=== PATIENT | male | born 1980 | race Caucasian/White ===

== ENCOUNTER 2019-11-16 06:06 | Day surgery (SDC) | payer BC ==
[2019-11-15 12:05] VITALS: BMI 50.8
--- NOTE | 2019-11-16 11:04 | OP ---
DATE OF PROCEDURE: 11/16/2019 PROCEDURES PERFORMED: Esophagogastroduodenoscopy with biopsy and colonoscopy with biopsy and snare polypectomy. PREOPERATIVE DIAGNOSES: Blood in the stool, and intermittent diarrhea chronic, and gastroesophageal reflux disease. DESCRIPTION OF PROCEDURE: Informed consent was obtained from the patient. He was sedated with total intravenous anesthesia. The bite block was placed, and the endoscope was advanced easily to the second portion of the duodenum and retroflexion was performed in the stomach. The esophagus was normal. The GE junction was normal. The stomach was normal including retroflexed views. The pylorus and first and second portions of the duodenum were normal. Biopsies were obtained from the second portion of the duodenum to rule out celiac disease. The patient was turned around. Rectal exam was performed and was normal. The colonoscope was advanced to the terminal ileum without difficulty. The preparation quality was excellent. The ileocecal valve and appendiceal orifice were clearly identified. I removed a 6 mm polyp from the hepatic flexure by snare cautery polypectomy. I removed a 6 mm polyp from the transverse colon by snare cautery polypectomy. I removed a 5 mm polyp from the descending colon by cold snare polypectomy. I removed a 10 mm pedunculated polyp from the sigmoid colon by snare cautery polypectomy. There was mild diverticulosis of the sigmoid and descending colon. The remainder of the colonic mucosa was normal including retroflexed views in the rectum. Random biopsies were obtained from the colon to rule out microscopic colitis. IMPRESSION: 1. Normal esophagogastroduodenoscopy. Duodenal biopsies taken to rule out celiac disease. 2. Hepatic flexure, 6 mm polyp. 3. Transverse colon, 6 mm polyp. 4. Descending colon, 5 mm polyp. 5. Sigmoid colon, 10 mm pedunculated polyp removed by hot snare. 6. Mild diverticulosis of the sigmoid and descending colon. 7. Otherwise normal colonoscopy. Random colon biopsies were taken to rule out microscopic colitis. RECOMMENDATIONS: 1. Await histopathology. 2. Follow up in GI clinic. 3. Repeat colonoscopy in 3 years if three or more polyps are adenomas or if the sigmoid polyp is an adenoma or if any of the polyps have a villous component. Job ID: [id number]
[2019-11-16] MEDS ORDERED: PROPOFOL 200 MG/20 ML VIAL ONE (11:11)
[2019-11-16] MEDS ORDERED: Lidocaine 1% PF 5 ML VIAL ONE (11:11)
== END 2019-11-16 09:38 | disposition home or self-care (01) ==
LOC: SDC 06:06
PROVIDERS: ATTEND Internal Medicine Gastroenterology
PROC: 0DBN8ZX Excision of Sigmoid Colon, Via Natural or Artificial Opening Endoscopic, Diagnostic (ICD-10-PCS; principal; 2019-11-16)
PROC: 0DBE8ZX Excision of Large Intestine, Via Natural or Artificial Opening Endoscopic, Diagnostic (ICD-10-PCS; principal; 2019-11-16)
PROC: 0DBL8ZX Excision of Transverse Colon, Via Natural or Artificial Opening Endoscopic, Diagnostic (ICD-10-PCS; principal; 2019-11-16)
PROC: 0DBM8ZX Excision of Descending Colon, Via Natural or Artificial Opening Endoscopic, Diagnostic (ICD-10-PCS; principal; 2019-11-16)
PROC: 0DB98ZX Excision of Duodenum, Via Natural or Artificial Opening Endoscopic, Diagnostic (ICD-10-PCS; principal; 2019-11-16)
DX: D12.3 Benign neoplasm of transverse colon (principal); K51.40 Inflammatory polyps of colon without complications; K57.31 Diverticulosis of large intestine without perforation or abscess with bleeding; K52.9 Noninfective gastroenteritis and colitis, unspecified; I10 Essential (primary) hypertension; E78.5 Hyperlipidemia, unspecified; K21.9 Gastro-esophageal reflux disease without esophagitis; Z79.51 Long term (current) use of inhaled steroids; Z79.82 Long term (current) use of aspirin; Z79.899 Other long term (current) drug therapy; Z88.0 Allergy status to penicillin
CPT/HCPCS: 88305; J2001; J2704